=== PATIENT | female | born 1960 | race Caucasian/White ===

== ENCOUNTER 2018-10-06 01:28 | Emergency (ER) | payer MEDICARE ==
[~2018-10-06] VITALS: Ht 149.9 cm; Wt 51.4 kg
[2018-10-06] MEDS ORDERED: GABA-529 PO (02:38)
[2018-10-06] MEDS ORDERED: DICL100T2 PO (02:38)
[2018-10-06 05:06] VITALS: BP 102/67
== END 2018-10-06 05:52 | disposition home or self-care (01) ==
LOC: EMS 01:32
DX: R51 Headache (principal); F31.9 Bipolar disorder, unspecified; F17.210 Nicotine dependence, cigarettes, uncomplicated; F12.90 Cannabis use, unspecified, uncomplicated; G89.29 Other chronic pain; Z76.0 Encounter for issue of repeat prescription; Z91.19 Patient's noncompliance with other medical treatment and regimen

== ENCOUNTER 2020-06-18 15:46 | Emergency (ER) | payer MEDICARE ==
[~2020-06-18] VITALS: Ht 149.9 cm; Wt 50.9 kg
[~2020-06-18 15:46] MED LIST: ASCO500 PO; BUSP5TAB20 PO; ESCI-8 PO; LURA40TA2 PO; ZINC220C14 PO
[2020-06-18] MEDS ORDERED: LORA-1000 PO (15:59)
[2020-06-18 16:15] VITALS: BP 110/70
[2020-06-18] MEDS ORDERED: LURASIDONE HCL 20 MG TABLET PO ONE (16:45)
[2020-06-18] MEDS ORDERED: ESCITALOPRAM OXALATE 10 MG TABLET PO ONE (16:45)
[2020-06-18 17:18] LABS: BASOPHILS % (AUTO) 0.6 % (0.0-2.0); EOSINOPHILS % (AUTO) 1.5 % (1.0-6.0); HEMATOCRIT 38.3 % (36-46); HEMOGLOBIN 12.9 g/dL (12.0-16.0); LYMPHOCYTES # (AUTO) 3.2 K/uL (1.0-4.8); LYMPHOCYTES % (AUTO) 36.3 % (22.0-44.0); MEAN CORPUSCULAR HEMOGLOBIN 32.4 pg (26.0-34.0); MEAN CORPUSCULAR HGB CONC 33.6 G/dL (31.0-37.0); MEAN CORPUSCULAR VOLUME 97 fL (80-100); MONOCYTES # (AUTO) 0.8 K/uL (0.1-1.0); MONOCYTES % (AUTO) 9.1 % (2.0-9.0); NEUTROPHILS # (AUTO) 4.6 K/uL (1.8-7.7); NEUTROPHILS % (AUTO) 52.5 % (40.0-70.0); PLATELET COUNT (AUTO) 302 K/uL (150-450); RED BLOOD CELL COUNT(AUTO) 3.97 MIL/uL (4.00-5.20); RED CELL DISTRIBUTION WIDTH 14.3 % (11.5-14.5)
[2020-06-18 17:38] LABS: ANION GAP 7 mmol/L (8-16); CARBON DIOXIDE 29 mmol/L (22-29); CHLORIDE 102 mmol/L (98-107); CREATININE 0.62 mg/dL (0.60-1.30); GLOMERULAR FILTR. RATE CALC > 60 mL/min (>60); GLUCOSE,RANDOM 90 mg/dL (70-110); POTASSIUM 4.1 mmol/L (3.5-5.1); SODIUM SERUM 138 mmol/L (136-145); UREA NITROGEN, BLOOD 19 mg/dL (7-18)
[2020-06-18 17:43] LABS: ALANINE AMINOTRANSFERASE 21 U/L (12-78); ALBUMIN 3.6 g/dL (3.4-5.0); ALKALINE PHOSPHATASE 70 U/L (46-116); ASPARTATE AMINOTRANSFERASE 13 U/L (15-37); BILIRUBIN,TOTAL 0.2 mg/dL (0.1-1.0); TOTAL PROTEIN, SERUM 6.9 g/dL (6.4-8.2)
[2020-06-18 18:16] LABS: COVID AG,FIA SOURCE NASOPHARYNGEAL
== END 2020-06-18 21:46 | disposition home or self-care (01) ==
LOC: EMS 15:46
DX: F31.9 Bipolar disorder, unspecified (principal); G89.29 Other chronic pain; F17.210 Nicotine dependence, cigarettes, uncomplicated; F12.90 Cannabis use, unspecified, uncomplicated; Z20.822 Contact with and (suspected) exposure to COVID-19
CPT/HCPCS: 80053; 85025; 87426; 99284; G0480